=== PATIENT | female | born 1990 | race Hispanic/Latino ===

== ENCOUNTER 2017-09-28 14:26 | Outpatient (CLI) | payer OTHER ==
[2017-09-28 15:35] LABS: #Basophils 0.1 thou/uL (0.0-0.2); #Eosinphils 0.2 thou/uL (0.0-0.7); #Lymphocytes 1.8 thou/uL (1.20-3.40); #Monocytes 0.7 thou/uL (0.11-0.59); #Neutrophils 6.1 thou/uL (1.40-6.50); %Basophils 0.9 % (0.0-1.0); %Eosinophils 1.9 % (0.0-10.0); %Lymphocytes 20.7 % (21.0-51.0); %Monocytes 7.5 % (0.0-10.0); Hematocrit 31.3 % (36.0-47.0); Mean Platelet Volume 9.3 fL (7.4-10.4); Red Blood Cell (RBC) Count 3.63 mill/uL (4.20-5.40); White Blood Cell (WBC) Count 8.8 thou/uL (4.8-10.8)
[2017-09-28 15:58] LABS: ALT (SGPT) 11 U/L (8-55); AST (SGOT) 12 U/L (5-34); Alkaline Phosphatase 67 U/L (40-150); Anion Gap 11 mmol/L (10-20); BUN (Urea Nitrogen) 45 mg/dL (7.0-18.7); Bilirubin, Total 0.6 mg/dL (0.2-1.2); Calc. Creatinine Clearance 0 mL/min (70-130); Calcium 9.2 mg/dL (7.8-10.44); Carbon Dioxide 21 mmol/L (22-29); Chloride 109 mmol/L (98-107); Estimated GFR-MDRD 18; Globulin 2.8 g/dL (2.4-3.5)
== END 2017-09-28 14:27 | disposition home or self-care (01) ==
LOC: LABBT 14:26
PROVIDERS: ATTEND Surgery
DX: Z01.812 Encounter for preprocedural laboratory examination (principal); Z51.81 Encounter for therapeutic drug level monitoring; R19.04 Left lower quadrant abdominal swelling, mass and lump; I74.8 Embolism and thrombosis of other arteries; Z79.01 Long term (current) use of anticoagulants
CPT/HCPCS: 80053; 84703; 85025; 93005; 93010

== ENCOUNTER 2017-10-05 07:32 | Day surgery (SDC) | payer OTHER ==
[2017-09-28 15:24] VITALS: BMI 39.6
[2017-10-05] MEDS ORDERED: CEFAZOLIN/Water 2 GM/20 ML SYRINGE ONE (08:53)
[2017-10-05] MEDS ORDERED: Bupivacaine/Epinephrine 0.25% 30 ML VIAL ONE (09:18)
[2017-10-05] MEDS ORDERED: Fentanyl 100 MCG/2 ML VIAL ONE ×2 (09:20)
[2017-10-05] MEDS ORDERED: Midazolam HCl 2 mg/2 ml Vial ONE (09:20)
--- NOTE | 2017-10-05 11:31 | OP ---
PREOPERATIVE DIAGNOSIS: Massive left lower quadrant abdominal wall. SURGEON: Masood Barrett M.D. PROCEDURE PERFORMED: Excisional biopsy. INDICATIONS: This is a 27-year-old female with a painful mass in the left lower quadrant that become s larger and more painful with menses. She has had a previous section. FINDINGS: An 8 x 6 cm mass that is in the subcutaneous tissue, left lower quadrant consistent with e ndometrioma. DESCRIPTION OF PROCEDURE: After informed consent was obtained, the patient was taken to the operatin g room and given general endotracheal anesthesia. She was placed in the supine position. Her abdome n was prepped and draped in the usual fashion. Local anesthesia infiltrated subcutaneously and deep. A transverse incision was performed over the palpable mass. The subcu divided sharply. The mass wa s excised with normal tissue surrounding it circumferentially. It did not penetrate the fascia. It was sent to pathology for further analysis. Hemostasis was achieved with electrocautery. The wound was irrigated. Subcutaneous reapproximated with interrupted 3-0 Vicryl. Skin closed with a running subcuticular 4-0 Rapide. Dermabond applied. The patient tolerated the procedure well and transferre d to recovery in good condition. Sponge and needle count verified correct x2.
[2017-10-05] MEDS ORDERED: Ondansetron HCl/PF 4 MG/2 ML Vial ONE (16:08)
[2017-10-05] MEDS ORDERED: Dexamethasone 20 MG/5 ML VIAL ONE (16:08)
[2017-10-05] MEDS ORDERED: Lidocaine 1% PF 5 ML VIAL ONE (16:08)
[2017-10-05] MEDS ORDERED: Propofol 200 MG/20 ML VIAL ONE (16:08)
[2017-10-05] MEDS ORDERED: ePHEDrine/0.9% NaCl/PF SYRINGE 50 mg/10 ml ONE (16:08)
== END 2017-10-05 12:05 | disposition home or self-care (01) ==
LOC: SDC 07:32
PROVIDERS: ATTEND Surgery
DX: N80.3 Endometriosis of pelvic peritoneum (principal); R19.04 Left lower quadrant abdominal swelling, mass and lump; M32.9 Systemic lupus erythematosus, unspecified; Z88.2 Allergy status to sulfonamides; Z98.890 Other specified postprocedural states
CPT/HCPCS: 88307; J1100; J2001; J2250; J2405; J2704; J3010

== ENCOUNTER 2018-04-04 21:51 | Emergency (ER) | payer OTHER ==
[2018-04-05 00:11] LABS: HIV (1/2) Antibody/Antigen Non-Reactive (NonReactive); HIV 1/2 INDEX 0.17 S/CO (<1.00); Hep C IgG Ab Non-Reactive (NonReactive); Hep C Index 0.16 S/CO (0-0.79)
[2018-04-05 00:59] LABS: Hep B Surf AB Reactive (NonReactive)
== END 2018-04-04 23:37 | disposition home or self-care (01) ==
LOC: ERS 21:51
DX: S61.432A Puncture wound without foreign body of left hand, initial encounter (principal); F32.9 Major depressive disorder, single episode, unspecified; W46.1XXA Contact with contaminated hypodermic needle, initial encounter
CPT/HCPCS: 86706; 86803; 87389; 99283

== ENCOUNTER 2018-11-07 15:10 | Outpatient (CLI) | payer BC ==
[2018-11-07 16:59] LABS: #Basophils 0.1 thou/uL (0.0-0.2); #Eosinphils 0.2 thou/uL (0.0-0.7); #Lymphocytes 2.2 thou/uL (1.20-3.40); #Monocytes 0.9 thou/uL (0.11-0.59); %Basophils 1.1 % (0.0-1.0); %Eosinophils 2.7 % (0.0-10.0); %Lymphocytes 26.6 % (21.0-51.0); %Monocytes 10.1 % (0.0-10.0); %Neutrophils 59.5 % (42.0-75.0); Hemoglobin 12.6 g/dL (12.0-16.0); Mean Corpuscular HGB CONC 33.9 g/dL (32.0-36.0); Mean Corpuscular Hemoglobin 29.4 pg (27.0-31.0); Mean Corpuscular Volume 86.5 fL (78.0-98.0); Mean Platelet Volume 9.1 fL (7.4-10.4); Platelet Count 264 thou/uL (130-400); RBC Distribution Width 13.7 % (11.5-14.5); Red Blood Cell (RBC) Count 4.28 mill/uL (4.20-5.40); White Blood Cell (WBC) Count 8.4 thou/uL (4.8-10.8)
[2018-11-07 17:24] LABS: BHCG - Serum Negative (NEGATIVE); Pregs Control Background? CLEAR/WHITE (CLR/WHITE); Pregs Control Bar Appear? YES (CONTROL BAR)
[2018-11-07 17:28] LABS: ALT (SGPT) 27 U/L (8-55); AST (SGOT) 18 U/L (5-34); Albumin 4.5 g/dL (3.5-5.0); Alkaline Phosphatase 75 U/L (40-150); Anion Gap 14 mmol/L (10-20); BUN (Urea Nitrogen) 49 mg/dL (7.0-18.7); Bilirubin, Total 0.5 mg/dL (0.2-1.2); Calc. Creatinine Clearance 0 mL/min (70-130); Calcium 9.9 mg/dL (7.8-10.44); Carbon Dioxide 22 mmol/L (22-29); Chloride 109 mmol/L (98-107); Estimated GFR-MDRD 13; Globulin 3.1 g/dL (2.4-3.5); Glucose 76 mg/dL (70-105); Potassium 5.6 mmol/L (3.5-5.1); Protein, Total 7.6 g/dL (6.0-8.3); Sodium 139 mmol/L (136-145)
== END 2018-11-07 15:11 | disposition home or self-care (01) ==
LOC: LABBT 15:10
PROVIDERS: ATTEND Surgery
DX: Z01.818 Encounter for other preprocedural examination (principal); N80.9 Endometriosis, unspecified; L90.5 Scar conditions and fibrosis of skin
CPT/HCPCS: 80053; 84703; 85025

== ENCOUNTER 2018-11-17 05:55 | Day surgery (SDC) | payer BC ==
[2018-11-07 15:54] VITALS: BMI 43.2
[2018-11-17] MEDS ORDERED: Fentanyl 100 MCG/2 ML VIAL ONE ×2 (06:40→09:14)
[2018-11-17] MEDS ORDERED: Famotidine/PF 20 mg/2ml Vial ONE (06:40)
[2018-11-17] MEDS ORDERED: CEFAZOLIN 2 GM/50 ML BAG ONE (06:42)
[2018-11-17] MEDS ORDERED: Midazolam HCl 2 mg/2 ml Vial ONE (07:11)
[2018-11-17] MEDS ORDERED: Bupivacaine/Epinephrine 0.25% 30 ML VIAL ONE (07:42)
--- NOTE | 2018-11-17 09:32 | OP ---
DATE OF PROCEDURE: 11/17/2018 PREOPERATIVE DIAGNOSIS: Endometrioma of left scar. PROCEDURE PERFORMED: Excision of endometrioma. INDICATIONS: This is a 28-year-old female, who had developed an endometrioma in the past after a section. She developed a recurrent painful bulge on the left side consistent with a new lesion. FINDINGS: 2 cm firm nodule with a surrounding hematoma. DESCRIPTION OF PROCEDURE: After informed consent was obtained, the patient was taken to the operating room, given general endotracheal anesthesia, placed in supine position. Her pelvis was prepped and draped in usual fashion. Local anesthesia infiltrated subcutaneously and deep. Transverse incision performed through the old scar. Subcu divided sharply down to the mass. The mass was dissected out circumferentially and excised including a small piece of fascia. It was sent to pathology for further analysis. The hemostasis was achieved utilizing electrocautery and [id number] of 3-0 Vicryl. Then, the fascia closed with interrupted [id number] of #1 prolene. Then, the subcu was reapproximated with interrupted 2-0 Vicryl and the skin closed with a running subcuticular 4-0 Rapide. Steri-Strips applied. Sterile bandage applied. The patient tolerated the procedure well, transferred to Recovery in good condition. Sponge and needle count verified correct x2. Job ID: [id number]
[2018-11-17] MEDS ORDERED: HYDROcodone/Acetaminophen 5/325 mg Tablet ONE (10:00)
[2018-11-17] MEDS ORDERED: PROPOFOL 200 MG/20 ML VIAL ONE (16:44)
[2018-11-17] MEDS ORDERED: PHENYLEPHRINE-NS 100 MCG/ML 10 ML SYRINGE ONE (16:44)
[2018-11-17] MEDS ORDERED: Lidocaine 1% PF 5 ML VIAL ONE (16:44)
[2018-11-17] MEDS ORDERED: Ondansetron PF 4 MG/2 ML Vial ONE (16:44)
--- NOTE | 2018-11-23 06:46 | PQF ---
[facility] [place] POST DISCHARGE CLINICAL DOCUMENTATION IMPROVEMENT CLARIFICATION FORM l Todays Date: 11/23/18 l Patients Name CHUY HURTADO l l Admit Date 11/17/18 l Disch Date 11/17/18 Safety Compliance Specialist Name Gerald Palacios Email: [email or web address] Cell: [phone] To be completed by Safety Compliance Specialist: Present Clinical Indicators - Signs / Symptoms Results and Location in Medical Record [ ] Documentation of: [ ] [ ] Documentation of: [ ] [ ] Documentation of: [ ] [ ] Documentation of: [ ] [ ] Risks [ ] [ ] [ ] Treatment [ ] ENDOMETRIOMA SOFT TISSUE ABDOMEN QUERY FOR SIZE OF EXCISED MARGINA [ ] [ ] To be completed by Physician: CORY RAMIREZ The documentation in this patients record requires clarification to ensure coding compliance and accuracy. Check the appropriate box and include in your discharge summary. [x ] 4.5 by 3.5 by1.9 cm [ ] [ ] [ ] Please check this box if this does not apply to this patient [ ] Unable to determine [ ] Other diagnosis: Review the following information and exercise your independent professional judgment in responding to the clarification. Based upon the clinical findings, risk factors, and treatment, please clarify if you are treating one of the above probable or suspected diagnoses. Physician Signature: Date Time MTDD
== END 2018-11-17 11:50 | disposition home or self-care (01) ==
LOC: SDC 05:55
PROVIDERS: ATTEND Surgery
PROC: 0JB80ZZ Excision of Abdomen Subcutaneous Tissue and Fascia, Open Approach (ICD-10-PCS; principal; 2018-11-17)
DX: N80.8 Other endometriosis (principal); M32.9 Systemic lupus erythematosus, unspecified; E66.9 Obesity, unspecified; Z68.43 Body mass index [BMI] 50.0-59.9, adult; Z98.891 History of uterine scar from previous surgery; Z79.01 Long term (current) use of anticoagulants; Z79.899 Other long term (current) drug therapy; Z88.2 Allergy status to sulfonamides
CPT/HCPCS: 88305; 96374; J2001; J2250; J2405; J2704; J3010; S0028

== ENCOUNTER 2019-03-22 17:01 | Outpatient (CLI) | payer BC ==
[2019-03-22 18:01] LABS: #Basophils 0.1 thou/uL (0.0-0.2); #Eosinphils 0.2 thou/uL (0.0-0.7); #Lymphocytes 1.7 thou/uL (1.20-3.40); #Monocytes 0.7 thou/uL (0.11-0.59); #Neutrophils 4.5 thou/uL (1.40-6.50); %Basophils 1.2 % (0.0-1.0); %Eosinophils 2.9 % (0.0-10.0); %Lymphocytes 23.9 % (21.0-51.0); %Monocytes 9.1 % (0.0-10.0); Hemoglobin 9.2 g/dL (12.0-16.0); Mean Corpuscular HGB CONC 34.1 g/dL (32.0-36.0); Mean Corpuscular Hemoglobin 26.9 pg (27.0-31.0); Mean Corpuscular Volume 78.9 fL (78.0-98.0); Mean Platelet Volume 10.3 fL (7.4-10.4); Platelet Count 277 thou/uL (130-400); RBC Distribution Width 16.6 % (11.5-14.5); Red Blood Cell (RBC) Count 3.42 mill/uL (4.20-5.40); White Blood Cell (WBC) Count 7.1 thou/uL (4.8-10.8)
--- NOTE | 2019-03-24 13:50 | EKG ---
Test Reason : Blood Pressure : / mmHG Vent. Rate : 079 BPM Atrial Rate : 079 BPM P-R Int : 160 ms QRS Dur : 094 ms QT Int : 366 ms P-R-T Axes : 056 029 023 degrees QTc Int : 419 ms Normal sinus rhythm Normal ECG When compared with ECG of 28-SEP-2017 14:51, No significant change was found Confirmed by DR. Kevin COUCH ([id number]) on 03/24/2019 1:49:39 PM Referred By: ANASTASIA Confirmed By:DR. Kevin COUCH
== END 2019-03-22 17:02 | disposition home or self-care (01) ==
LOC: LABBT 17:01
PROVIDERS: ATTEND Surgery
DX: Z01.818 Encounter for other preprocedural examination (principal); D17.79 Benign lipomatous neoplasm of other sites
CPT/HCPCS: 85025; 93005; 93010

== ENCOUNTER 2019-04-06 06:06 | Day surgery (SDC) | payer BC ==
[2019-04-05 08:45] VITALS: BMI 44.8
[2019-04-06] MEDS ORDERED: Bupivacaine HCl 0.5%/Epinephrine 1:200,000/PF 30 ml Vial ONE (06:46)
[2019-04-06] MEDS ORDERED: Fentanyl 100 MCG/2 ML VIAL ONE (07:02)
[2019-04-06] MEDS ORDERED: Midazolam HCl 2 mg/2 ml Vial ONE (07:02)
--- NOTE | 2019-04-06 12:11 | OP ---
DATE OF PROCEDURE: 04/06/2019 PREOPERATIVE DIAGNOSIS: Painful lipoma, right hip. PROCEDURE PERFORMED: Excisional biopsy. INDICATIONS: A 28-year-old female with an enlarging soft tissue mass of the right hip causing pain. FINDINGS: A 5 x 4 x 2 cm lipoma of right hip. DESCRIPTION OF PROCEDURE: After informed consent was obtained, the patient was taken to the operating room and given general mask anesthesia, placed in the supine position. Her hip was prepped and draped in usual fashion. Local anesthesia was infiltrated subcutaneously and deep. A transverse incision was performed. Subcu divided sharply. The capsule was opened using hydrodissection and digital dissection. The mass was excised, sent to pathology for further analysis. Hemostasis was achieved with electrocautery. Subcu reapproximated with interrupted 3-0 Vicryl. Skin was closed with a running subcuticular 4-0 Rapide. Steri-Strips applied. Sterile bandage applied. The patient tolerated the procedure well, transferred to Recovery in good condition. Sponge and needle count verified correct x2. Job ID: [id number]
== END 2019-04-06 09:33 | disposition home or self-care (01) ==
LOC: SDC 06:06
PROVIDERS: ATTEND Surgery
PROC: 0JBL0ZZ Excision of Right Upper Leg Subcutaneous Tissue and Fascia, Open Approach (ICD-10-PCS; principal; 2019-04-06)
DX: D17.1 Benign lipomatous neoplasm of skin and subcutaneous tissue of trunk (principal); Z79.01 Long term (current) use of anticoagulants; Z79.899 Other long term (current) drug therapy
CPT/HCPCS: 88304; J0670; J0690; J2250; J3010

== ENCOUNTER 2020-10-07 06:40 | Outpatient (CLI) | payer BC ==
[2020-10-07 13:33] LABS: #Basophils 0.1 10x3/uL (0.0-0.2); #Eosinphils 0.4 10x3/uL (0.0-0.5); #Monocytes 0.5 10x3/uL (0.0-1.1); #Neutrophils 5.7 10x3/uL (1.5-8.4); %Basophils 0.6 % (0.0-2.0); %Eosinophils 4.6 % (0.0-6.0); %Lymphocytes 20.7 % (18.0-47.0); %Neutrophils 67.7 % (40.0-75.0); Hemoglobin 12.7 g/dL (12.0-16.0); Mean Corpuscular HGB CONC 31.9 G/DL (32.0-36.0); Mean Corpuscular Hemoglobin 29.7 PG (27.0-33.0); Platelet Count 254 10x3/uL (130-400); RBC Distribution Width 13.2 % (11.5-14.5); Red Blood Cell (RBC) Count 4.28 10x6/uL (3.90-5.20); White Blood Cell (WBC) Count 8.4 10x3/uL (4.5-11.0)
[2020-10-07 14:04] LABS: BHCG - Serum Negative (NEGATIVE); Pregs Control Background? CLEAR/WHITE (CLR/WHITE); Pregs Control Bar Appear? YES (CONTROL BAR)
[2020-10-07 21:56] LABS: SARS-CoV-2 MS2 Positive; SARS-CoV-2 N Gene Negative; SARS-CoV-2 S Gene Negative; SARS-CoV-2 by NAA Not Detected (NotDetected); SARS-CoV-2 orf1ab Negative
== END 2020-10-07 06:41 | disposition home or self-care (01) ==
LOC: LABBT 06:40
PROVIDERS: ATTEND Surgery
DX: Z01.812 Encounter for preprocedural laboratory examination (principal); Z20.828 Contact with and (suspected) exposure to other viral communicable diseases; N80.9 Endometriosis, unspecified
CPT/HCPCS: 84703; 85025; 87635; U0003

== ENCOUNTER → 2020-10-10 | Day surgery (SDC) | payer BC ==
[2020-10-09 08:53] VITALS: BMI 46.0
[~2020-10-10] MED LIST: Fentanyl 100 MCG/2 ML VIAL ONE
--- NOTE | 2020-10-10 08:08 | HP ---
CHIEF COMPLAINT: Recurrent endometrioma. HISTORY OF PRESENT ILLNESS: The patient is a 30-year-old female, who 2 years ago had an excision of an endometrioma, who had a recurrent painful mass. PAST MEDICAL HISTORY: Includes morbid obesity, systemic lupus, and history of chlamydia. PAST SURGICAL HISTORY: Includes , suction D and C, , abdominal mass removed in 2017, endometrioma in 2019, lipoma excised in 2019, and bilateral tubal ligations in 2019. MEDICATIONS: Include: 1. Eliquis. 2. Plaquenil. 3. Fluoxetine. 4. Vitamin D. 5. Iron. 6. Lisinopril. FAMILY HISTORY: Diabetes, hyperlipidemia. SOCIAL HISTORY: No tobacco. No alcohol. She is single. PHYSICAL EXAMINATION: VITAL SIGNS: Height 63, weight 250, body mass index 44. GENERAL: Well-developed, well-nourished female, no apparent distress. HEENT: Unremarkable. LUNGS: Clear. HEART: Regular rate and rhythm. ABDOMEN: Soft. There is a 1.5-cm mass in mid suprapubic abdomen. EXTREMITIES: Good pulses. No pedal edema. ASSESSMENT: Recurrent endometrioma. PLAN: Excision. CONSENT: I have discussed planned procedure as well as risk of bleeding, recurrence, infection. She understands and gives informed consent. Job ID: [id number]
== END ==
LOC: SDC 05:59
PROVIDERS: ATTEND Surgery
DX: N80.9 Endometriosis, unspecified (principal); Z53.09 Procedure and treatment not carried out because of other contraindication; M32.9 Systemic lupus erythematosus, unspecified; E66.01 Morbid (severe) obesity due to excess calories; Z68.42 Body mass index [BMI] 45.0-49.9, adult; Z88.2 Allergy status to sulfonamides; Z79.01 Long term (current) use of anticoagulants; Z79.899 Other long term (current) drug therapy
CPT/HCPCS: J0690; J3010